=== PATIENT | female | born 1960 | race Caucasian/White ===

== ENCOUNTER 2021-09-21 20:37 | Emergency (ER) | payer BC ==
[~2021-09-21] VITALS: Ht 170.2 cm; Wt 104.0 kg
[2021-09-21] MEDS ORDERED: LACTULOSE 20G/30ML UDC PO ONE (22:00)
[2021-09-21 23:50] LABS: CHLORIDE 101 mEq/L (98-107)
[2021-09-22 00:15] VITALS: BP 138/66
[2021-09-22] MEDS ORDERED: LACTULOSE 20G/30ML UDC PO NR (00:35)
[2021-09-22] MEDS ORDERED: MOM MT (00:50)
== END 2021-09-22 01:35 | disposition home or self-care (01) ==
LOC: ER 20:37
DX: K59.00 Constipation, unspecified (principal); R10.84 Generalized abdominal pain
CPT/HCPCS: 36415; 74018; 80053; 99284